=== PATIENT | male | born 1965 | race Caucasian/White ===

== ENCOUNTER 2019-10-31 23:47 | Observation (INO) ==
[2019-11-01 00:27] LABS: Basophils % 0.6 %; Eosinophils # 0.2 K/mcL (0.0-0.6); Eosinophils % 2.4 %; Hematocrit 44.1 % (37.5-50.1); Hemoglobin 15.5 g/dL (12.9-16.9); Immature Granulocytes % 0.1 % (0-4); Lymphocytes # 2.5 K/mcL (0.6-4.6); Mean Corpuscular HGB Conc 35.1 g/dL (31.6-35.5); Mean Corpuscular Hemoglobin 32.6 pg (28.0-33.3); Mean Corpuscular Volume 92.8 fL (83.0-100.0); Mean Platelet Volume 10.6 fL (9.4-12.4); Monocytes # 0.7 K/mcL (0.0-1.3); Monocytes % 9.9 %; Neutrophils # 3.7 K/mcL (1.6-8.9); Platelet Count 150 K/mcL (140-400); Red Blood Count 4.75 M/mcL (4.19-5.50); Red Cell Distribution Width 12.1 % (11.5-14.5); White Blood Count 7.2 K/mcL (4.3-11.1)
[2019-11-01 00:49] LABS: BUN/Creatinine Ratio 16 (6-26); Blood Urea Nitrogen 15 mg/dL (6-20); Carbon Dioxide 21 mEq/L (23-29); Chloride 108 mEq/L (98-107); Glucose 104 mg/dL (70-105); Osmolality,Calculated 285 (280-300); Potassium 4.1 mEq/L (3.5-5.1); Sodium 137 mEq/L (136-145); eGFR For African Americans > 60 (> 60); eGFR For Non-African Americans > 60 (> 60)
[2019-11-01 00:56] LABS: Troponin I 0.11 ng/mL (< 0.04)
[2019-11-01] MEDS ORDERED: *HR* Heparin 5,000 UNIT/ML VIAL IVP PRN ×2 (01:14)
[2019-11-01] MEDS ORDERED: *HR* Heparin 5,000 UNIT/ML VIAL IVP ONE (01:14)
[2019-11-01] MEDS ORDERED: Heparin 25,000 UNIT/250 ML D5W 25,000 UNIT/250 ML IV.SOLN IVC SCH (01:15)
[2019-11-01] MEDS ORDERED: Aspirin 81 MG TAB.CHEW PO STA (01:16)
[2019-11-01] MEDS: Nitroglycerin 0.4 MG TAB.SUBL SL SCH ×3 (01:37→01:53)
[2019-11-01] MEDS ORDERED: Ondansetron 4 MG/2 ML VIAL ONE (01:44)
[2019-11-01] MEDS ORDERED: *HR* FentaNYL (PF) 100 MCG/2 ML VIAL IVP ONE (01:48)
[2019-11-01] MEDS ORDERED: Ondansetron 4 MG/2 ML VIAL IVP ONE (01:50)
[2019-11-01 02:07] LABS: Heparin anti-factor XA UFH 0.01 IU/mL (0.30-0.70)
[2019-11-01] MEDS ORDERED: Morphine Sulfate 2 MG/ML SYRINGE IVP ONE (02:23)
[2019-11-01] MEDS ORDERED: Naloxone 0.4 MG/ML INJ IVP PRN (03:50)
[2019-11-01] MEDS ORDERED: Nicotine 2 MG GUM BC PRN (03:50)
[2019-11-01 04:21] LABS: Basophils % 0.3 %; Eosinophils # 0.1 K/mcL (0.0-0.6); Hematocrit 42.2 % (37.5-50.1); Hemoglobin 14.3 g/dL (12.9-16.9); Immature Granulocytes % 0.3 % (0-4); Lymphocytes # 1.7 K/mcL (0.6-4.6); Lymphocytes % 18.9 %; Mean Corpuscular HGB Conc 33.9 g/dL (31.6-35.5); Mean Corpuscular Hemoglobin 33.1 pg (28.0-33.3); Mean Corpuscular Volume 97.7 fL (83.0-100.0); Mean Platelet Volume 10.3 fL (9.4-12.4); Monocytes # 0.6 K/mcL (0.0-1.3); Monocytes % 7.2 %; Neutrophils # 6.4 K/mcL (1.6-8.9); Platelet Count 144 K/mcL (140-400); Red Blood Count 4.32 M/mcL (4.19-5.50); Red Cell Distribution Width 12.2 % (11.5-14.5); Segmented Neutrophils % 72.3 %; White Blood Count 8.9 K/mcL (4.3-11.1)
[2019-11-01 04:49] LABS: Alanine Aminotransferase 22 Units/L (7-52); Albumin 4.1 g/dL (3.5-5.7); Albumin/Globulin Ratio 1.3 (1.1-2.2); Alkaline Phosphatase 68 Units/L (34-104); Aspartate Amino Transferase 24 Units/L (13-39); BUN/Creatinine Ratio 16 (6-26); Bilirubin,Total 0.4 mg/dL (0.3-1.0); Blood Urea Nitrogen 16 mg/dL (6-20); Calcium 9.8 mg/dL (8.6-10.3); Carbon Dioxide 25 mEq/L (23-29); Chloride 106 mEq/L (98-107); Chol/HDL Ratio 5.8 (0-4.9); Cholesterol 192 mg/dL (< 200); Globulin 3.2 g/dL (2.4-3.5); Glucose 159 mg/dL (70-105); HDL Cholesterol 33 mg/dL (40-59); LDL Cholesterol,Calculated 143 mg/dL (0-99); Magnesium 1.8 mg/dL (1.6-2.6); Osmolality,Calculated 293 (280-300); Phosphorous 2.4 mg/dL (2.7-4.5); Potassium 4.4 mEq/L (3.5-5.1); Sodium 139 mEq/L (136-145); Total Protein 7.3 g/dL (6.4-8.9); Triglycerides 79 mg/dL (< 150); Troponin I 0.66 ng/mL (< 0.04); eGFR For African Americans > 60 (> 60); eGFR For Non-African Americans > 60 (> 60)
[2019-11-01 07:09] LABS: Bilirubin,Urine Negative (Negative); Blood,Urine Negative (Negative); Clarity,Urine Clear (Clear); Color,Urine Yellow (Yellow); Glucose,Urine (UA) Normal (Normal); Ketones,Urine Negative (Negative); Leukocyte Esterase,Urine Small (Negative); Nitrite,Urine Negative (Negative); PH,Urine 5.5 pH Units (5.0-8.0); Protein,Urine 30 mg/dL (Neg-Trace); Specific Gravity,Urine 1.023 (1.010-1.025); Urobilinogen,Urine Normal (Normal)
[2019-11-01 07:11] LABS: Bacteria,Urine None Seen per hpf (None-Few); Hyaline Casts,Urine None Seen per lpf (None-Few); Squamous Epithelial Cell,Urine Moderate per lpf (None-Few)
[2019-11-01 07:53] LABS: Amphetamine Screen,Urine Negative ng/mL (Cutoff=1000); Barbiturate Screen,Urine Negative ng/mL (Cutoff=200); Benzodiazepines Screen,Urine Negative ng/mL (Cutoff=200); Cannabinoid Screen,Urine Positive ng/mL (Cutoff = 50); Cocaine Screen,Urine Negative ng/mL (Cutoff= 300); Opiate Screen,Urine Positive ng/mL (Cutoff=300); Phencyclidine Screen,Urine Negative ng/mL (Cutoff=25)
[2019-11-01] MEDS ORDERED: carvediloL 6.25 MG TABLET PO SCH (08:00)
[2019-11-01] MEDS ORDERED: Nicotine 14 MG PATCH.TD24 TD SCH (09:00)
[2019-11-01 11:32] VITALS: BP 164/83
[2019-11-02] MEDS ORDERED: Aspirin Enteric Coated 81 MG Tablet PO SCH (09:00)
== END 2019-11-01 11:20 | disposition left against medical advice (07) ==
LOC: EMEROOARM 23:47 → CDU 23:47
PROVIDERS: ADMIT Family Medicine; ATTEND Family Medicine

== ENCOUNTER 2019-11-01 16:21 | Inpatient (IN) ==
[2019-11-01] MEDS ORDERED: *HR* Heparin 5,000 UNIT/ML VIAL IVP PRN ×2 (16:48)
[2019-11-01] MEDS ORDERED: *HR* Heparin 5,000 UNIT/ML VIAL IVP ONE (16:48)
[2019-11-01] MEDS ORDERED: Heparin 25,000 UNIT/250 ML D5W 25,000 UNIT/250 ML IV.SOLN IVC SCH (17:00)
[2019-11-01 17:52] LABS: Prothrombin Time 11.3 Seconds (9.4-12.1)
[2019-11-01 18:37] LABS: Hematocrit 41.1 % (37.5-50.1); Hemoglobin 14.7 g/dL (12.9-16.9); Mean Corpuscular HGB Conc 35.8 g/dL (31.6-35.5); Mean Corpuscular Hemoglobin 33.2 pg (28.0-33.3); Mean Corpuscular Volume 92.8 fL (83.0-100.0); Mean Platelet Volume 10.4 fL (9.4-12.4); Platelet Count 138 K/mcL (140-400); Red Blood Count 4.43 M/mcL (4.19-5.50); Red Cell Distribution Width 12.3 % (11.5-14.5); White Blood Count 8.1 K/mcL (4.3-11.1)
[2019-11-01] MEDS ORDERED: Perflutren Lipid Microsphere 1.3 ML in 0.9 % Sodium Chloride 8.7 ML IVP ONE (19:05)
[2019-11-01] MEDS ORDERED: Naloxone 0.4 MG/ML INJ IVP PRN (20:12)
[2019-11-01] MEDS ORDERED: Aspirin 325 MG TABLET PO ONE (20:12)
[2019-11-01] MEDS ORDERED: Nicotine 2 MG GUM BC PRN (20:16)
[2019-11-01] MEDS ORDERED: Nicotine 14 MG PATCH.TD24 TD SCH (20:40)
[2019-11-01] MEDS: carvediloL 6.25 MG TABLET PO SCH (22:16)
[2019-11-02 02:10] LABS: Basophils % 0.3 %; Eosinophils # 0.2 K/mcL (0.0-0.6); Eosinophils % 2.8 %; Hematocrit 42.3 % (37.5-50.1); Immature Granulocytes % 0.2 % (0-4); Lymphocytes # 2.5 K/mcL (0.6-4.6); Lymphocytes % 37.7 %; Mean Corpuscular HGB Conc 35.5 g/dL (31.6-35.5); Mean Corpuscular Hemoglobin 32.8 pg (28.0-33.3); Mean Corpuscular Volume 92.6 fL (83.0-100.0); Mean Platelet Volume 10.4 fL (9.4-12.4); Monocytes # 0.6 K/mcL (0.0-1.3); Monocytes % 8.6 %; Neutrophils # 3.3 K/mcL (1.6-8.9); Platelet Count 142 K/mcL (140-400); Red Blood Count 4.57 M/mcL (4.19-5.50); Red Cell Distribution Width 12.3 % (11.5-14.5); Segmented Neutrophils % 50.4 %; White Blood Count 6.5 K/mcL (4.3-11.1)
[2019-11-02 02:15] LABS: INR 1.1; Prothrombin Time 12.7 Seconds (9.4-12.1)
[2019-11-02 02:32] LABS: Alanine Aminotransferase 29 Units/L (7-52); Albumin/Globulin Ratio 1.3 (1.1-2.2); Alkaline Phosphatase 68 Units/L (34-104); Aspartate Amino Transferase 60 Units/L (13-39); BUN/Creatinine Ratio 16 (6-26); Bilirubin,Total 0.5 mg/dL (0.3-1.0); Blood Urea Nitrogen 15 mg/dL (6-20); Calcium 9.3 mg/dL (8.6-10.3); Carbon Dioxide 25 mEq/L (23-29); Chloride 108 mEq/L (98-107); Glucose 96 mg/dL (70-105); Magnesium 1.9 mg/dL (1.6-2.6); Osmolality,Calculated 285 (280-300); Phosphorous 3.7 mg/dL (2.7-4.5); Potassium 4.1 mEq/L (3.5-5.1); Sodium 137 mEq/L (136-145); eGFR For African Americans > 60 (> 60); eGFR For Non-African Americans > 60 (> 60)
[2019-11-02] MEDS: carvediloL 6.25 MG TABLET PO SCH ×2 (07:39→18:32)
[2019-11-02] MEDS: Aspirin Enteric Coated 81 MG Tablet PO SCH (09:04)
[2019-11-02] MEDS: Nicotine 14 MG PATCH.TD24 TD SCH (11:44)
[2019-11-02] MEDS ORDERED: *HR* Heparin 10,000 UNIT/10 ML VIAL ONE (13:16)
[2019-11-02] MEDS ORDERED: Heparin 1,000 UNITS/500 mL 500 ML ONE (13:16)
[2019-11-02] MEDS ORDERED: ISOVUE-370 200 ML INFUS..BTL ONE (13:16)
[2019-11-02] MEDS ORDERED: 0.9 % Sodium Chloride 2,000 ML ONE (13:17)
[2019-11-02] MEDS ORDERED: Nitroglycerin 1,000 MCG/10 ML VIAL IV ONE (13:17)
[2019-11-02] MEDS ORDERED: *HR* FentaNYL (PF) 100 MCG/2 ML VIAL ONE (14:13)
[2019-11-02] MEDS ORDERED: *HR* Midazolam HCl 2 MG/2 ML VIAL ONE (14:13)
[2019-11-02] MEDS ORDERED: *HR* Ticagrelor 90 MG TABLET ONE (14:43)
[2019-11-02] MEDS ORDERED: *HR* Bivalirudin 250 MG VIAL IVC ONE (14:52)
[2019-11-02] MEDS ORDERED: Nitroglycerin 0.4 MG TAB.SUBL SL PRN (15:05)
[2019-11-02] MEDS ORDERED: 0.9 % Sodium Chloride 1,000 ML IVC SCH (15:15)
[2019-11-02] MEDS: *HR* Heparin 5,000 UNIT/ML VIAL SQ SCH (22:55)
[2019-11-03] MEDS: *HR* Heparin 5,000 UNIT/ML VIAL SQ SCH (04:26)
[2019-11-03 06:14] LABS: Hematocrit 44.9 % (37.5-50.1); Hemoglobin 15.9 g/dL (12.9-16.9)
[2019-11-03 06:44] LABS: BUN/Creatinine Ratio 17 (6-26); Blood Urea Nitrogen 16 mg/dL (6-20); eGFR For African Americans > 60 (> 60); eGFR For Non-African Americans > 60 (> 60)
[2019-11-03 07:23] VITALS: BP 144/78
[2019-11-03] MEDS: Nicotine 14 MG PATCH.TD24 TD SCH (09:04)
[2019-11-03] MEDS: Aspirin Enteric Coated 81 MG Tablet PO SCH (09:05)
[2019-11-03] MEDS: carvediloL 6.25 MG TABLET PO SCH (09:05)
[2019-11-03] MEDS ORDERED: FLU Vac QV 19-20 (6Month+)/PF 0.5 ML SYRINGE IM ONE (09:52)
== END 2019-11-03 11:22 | disposition home or self-care (01) | DRG 249 ==
LOC: EMEROOARM 16:21 → 2ANU 16:21 → SUATTDRO 21:13 → 2ANU 21:41
PROVIDERS: ADMIT Internal Medicine; ATTEND Internal Medicine

== ENCOUNTER 2019-11-07 19:27 | Observation (INO) ==
[2019-11-07 20:02] LABS: Basophils % 0.6 %; Eosinophils # 0.3 K/mcL (0.0-0.6); Eosinophils % 4.1 %; Hematocrit 40.4 % (37.5-50.1); Hemoglobin 14.5 g/dL (12.9-16.9); Immature Granulocytes % 0.3 % (0-4); Lymphocytes # 2.2 K/mcL (0.6-4.6); Lymphocytes % 30.9 %; Mean Corpuscular HGB Conc 35.9 g/dL (31.6-35.5); Mean Corpuscular Hemoglobin 32.7 pg (28.0-33.3); Mean Platelet Volume 10.2 fL (9.4-12.4); Monocytes # 0.9 K/mcL (0.0-1.3); Monocytes % 12.4 %; Neutrophils # 3.6 K/mcL (1.6-8.9); Platelet Count 158 K/mcL (140-400); Red Blood Count 4.44 M/mcL (4.19-5.50); Red Cell Distribution Width 11.9 % (11.5-14.5); Segmented Neutrophils % 51.7 %
[2019-11-07] MEDS: Nitroglycerin 0.4 MG TAB.SUBL SL SCH ×3 (20:03→20:13)
[2019-11-07 20:04] LABS: INR 1.1; Prothrombin Time 12.6 Seconds (9.4-12.1)
[2019-11-07 20:07] LABS: Activated Partial Thrombo Time 34.1 Seconds (26.0-36.0)
[2019-11-07 20:21] LABS: BUN/Creatinine Ratio 19 (6-26); Blood Urea Nitrogen 17 mg/dL (6-20); Calcium 9.5 mg/dL (8.6-10.3); Carbon Dioxide 25 mEq/L (23-29); Chloride 103 mEq/L (98-107); Glucose 118 mg/dL (70-105); Osmolality,Calculated 289 (280-300); Potassium 3.8 mEq/L (3.5-5.1); Sodium 138 mEq/L (136-145); eGFR For African Americans > 60 (> 60); eGFR For Non-African Americans > 60 (> 60)
[2019-11-07 20:28] LABS: Troponin I 0.12 ng/mL (< 0.04)
[2019-11-07] MEDS ORDERED: 0.9 % Sodium Chloride 1,000 ML IV ONE (20:31)
[2019-11-07] MEDS ORDERED: *HR* Heparin 5,000 UNIT/ML VIAL IVP ONE (20:34)
[2019-11-07] MEDS ORDERED: *HR* Heparin 5,000 UNIT/ML VIAL IVP PRN ×2 (20:34)
[2019-11-07] MEDS ORDERED: Heparin 25,000 UNIT/250 ML D5W 25,000 UNIT/250 ML IV.SOLN IVC SCH (20:45)
[2019-11-07] MEDS ORDERED: Morphine Sulfate 2 MG/ML SYRINGE IVP PRN (22:20)
[2019-11-08 03:10] LABS: Basophils % 0.7 %; Eosinophils # 0.2 K/mcL (0.0-0.6); Eosinophils % 3.6 %; Hematocrit 37.9 % (37.5-50.1); Immature Granulocytes % 0.2 % (0-4); Lymphocytes # 2.4 K/mcL (0.6-4.6); Lymphocytes % 38.8 %; Mean Corpuscular HGB Conc 34.3 g/dL (31.6-35.5); Mean Corpuscular Hemoglobin 32.7 pg (28.0-33.3); Mean Corpuscular Volume 95.2 fL (83.0-100.0); Mean Platelet Volume 10.3 fL (9.4-12.4); Monocytes # 0.8 K/mcL (0.0-1.3); Monocytes % 12.3 %; Neutrophils # 2.7 K/mcL (1.6-8.9); Platelet Count 142 K/mcL (140-400); Red Blood Count 3.98 M/mcL (4.19-5.50); Red Cell Distribution Width 11.9 % (11.5-14.5); Segmented Neutrophils % 44.4 %; White Blood Count 6.1 K/mcL (4.3-11.1)
[2019-11-08 03:34] LABS: Alanine Aminotransferase 20 Units/L (7-52); Albumin 3.7 g/dL (3.5-5.7); Albumin/Globulin Ratio 1.2 (1.1-2.2); Alkaline Phosphatase 59 Units/L (34-104); Aspartate Amino Transferase 17 Units/L (13-39); BUN/Creatinine Ratio 18 (6-26); Bilirubin,Total 0.4 mg/dL (0.3-1.0); Blood Urea Nitrogen 16 mg/dL (6-20); Calcium 8.9 mg/dL (8.6-10.3); Carbon Dioxide 22 mEq/L (23-29); Chloride 108 mEq/L (98-107); Globulin 3.2 g/dL (2.4-3.5); Glucose 95 mg/dL (70-105); Osmolality,Calculated 287 (280-300); Potassium 3.8 mEq/L (3.5-5.1); Sodium 138 mEq/L (136-145); Total Protein 6.9 g/dL (6.4-8.9); eGFR For African Americans > 60 (> 60); eGFR For Non-African Americans > 60 (> 60)
[2019-11-08 03:47] LABS: Thyroid Stimulating Hormone 3.703 mcIU/mL (0.340-5.600)
[2019-11-08 04:07] LABS: Estimated Average Glucose 126 mg/dl
[2019-11-08] MEDS ORDERED: carvediloL 6.25 MG TABLET PO SCH (08:00)
[2019-11-08] MEDS ORDERED: Nicotine 14 MG PATCH.TD24 TD SCH (09:00)
[2019-11-08] MEDS ORDERED: Aspirin Enteric Coated 81 MG Tablet PO SCH (09:00)
[2019-11-08] MEDS ORDERED: Nicotine 21 MG PATCH.TD24 TD SCH (09:00)
[2019-11-08] MEDS ORDERED: Perflutren Lipid Microsphere 1.3 ML in 0.9 % Sodium Chloride 8.7 ML IVP ONE (09:14)
[2019-11-08 09:57] VITALS: BP 130/45
[2019-11-08] MEDS ORDERED: Isosorbide MONOnitrate (24 HR) 30 MG TAB.ER.24H PO SCH (10:30)
== END 2019-11-08 15:45 | disposition home or self-care (01) ==
LOC: CDU 19:27 → EMEROOARM 19:27 → SUATTDRO 21:33 → CDU 22:24
PROVIDERS: ADMIT Student in an Organized Health Care Education/Training Program; ATTEND Family Medicine

== ENCOUNTER 2019-12-24 22:52 | Observation (INO) ==
[2019-12-24 23:22] LABS: Basophils % 0.4 %; Eosinophils # 0.3 K/mcL (0.0-0.6); Eosinophils % 3.6 %; Hematocrit 40.5 % (37.5-50.1); Hemoglobin 13.9 g/dL (12.9-16.9); Immature Granulocytes % 0.3 % (0-4); Lymphocytes # 2.1 K/mcL (0.6-4.6); Lymphocytes % 28.4 %; Mean Corpuscular HGB Conc 34.3 g/dL (31.6-35.5); Mean Corpuscular Hemoglobin 32.5 pg (28.0-33.3); Mean Corpuscular Volume 94.6 fL (83.0-100.0); Mean Platelet Volume 10.2 fL (9.4-12.4); Monocytes # 0.8 K/mcL (0.0-1.3); Monocytes % 10.4 %; Neutrophils # 4.3 K/mcL (1.6-8.9); Platelet Count 156 K/mcL (140-400); Red Blood Count 4.28 M/mcL (4.19-5.50); Red Cell Distribution Width 12.6 % (11.5-14.5); Segmented Neutrophils % 56.9 %; White Blood Count 7.5 K/mcL (4.3-11.1)
[2019-12-24 23:30] LABS: Prothrombin Time 11.7 Seconds (9.4-12.1)
[2019-12-24 23:33] LABS: Activated Partial Thrombo Time 28.3 Seconds (26.0-36.0)
[2019-12-24 23:38] LABS: BUN/Creatinine Ratio 22 (6-26); Blood Urea Nitrogen 20 mg/dL (6-20); Calcium 9.3 mg/dL (8.6-10.3); Carbon Dioxide 24 mEq/L (23-29); Chloride 102 mEq/L (98-107); Glucose 136 mg/dL (70-105); Osmolality,Calculated 287 (280-300); Potassium 3.8 mEq/L (3.5-5.1); Sodium 136 mEq/L (136-145); eGFR For African Americans > 60 (> 60); eGFR For Non-African Americans > 60 (> 60)
[2019-12-24 23:54] LABS: Troponin I < 0.03 ng/mL (< 0.04)
[2019-12-25] MEDS ORDERED: Ondansetron 4 MG/2 ML VIAL IVP ONE (00:09)
[2019-12-25] MEDS ORDERED: *HR* HYDROmorphone (PF) 1 MG/ML SYRINGE IVP ONE (00:09)
[2019-12-25] MEDS ORDERED: Ondansetron 4 MG/2 ML VIAL IVP PRN (00:12)
[2019-12-25] MEDS ORDERED: Naloxone 0.4 MG/ML INJ IVP PRN (00:12)
[2019-12-25] MEDS ORDERED: *HR* FentaNYL (PF) 100 MCG/2 ML VIAL IVP PRN (00:14)
[2019-12-25] MEDS ORDERED: Ringers Solution, Lactated 1,000 ML IVC ONE (00:14)
[2019-12-25] MEDS: Ringers Solution, Lactated 1,000 ML IVC SCH ×2 (03:00→10:38)
[2019-12-25] MEDS ORDERED: *HR* Heparin 5,000 UNIT/ML VIAL SQ SCH (06:00)
[2019-12-25] MEDS ORDERED: carvediloL 6.25 MG TABLET PO SCH (08:00)
[2019-12-25 08:34] LABS: Alanine Aminotransferase 14 Units/L (7-52); Albumin 3.1 g/dL (3.5-5.7); Albumin/Globulin Ratio 1.1 (1.1-2.2); Alkaline Phosphatase 64 Units/L (34-104); Aspartate Amino Transferase 12 Units/L (13-39); BUN/Creatinine Ratio 19 (6-26); Bilirubin,Indirect 0.2 mg/dL (0.0-1.0); Bilirubin,Total 0.2 mg/dL (0.3-1.0); Blood Urea Nitrogen 13 mg/dL (6-20); Calcium 8.4 mg/dL (8.6-10.3); Carbon Dioxide 22 mEq/L (23-29); Chloride 107 mEq/L (98-107); Globulin 2.8 g/dL (2.4-3.5); Glucose 95 mg/dL (70-105); Osmolality,Calculated 282 (280-300); Potassium 4.1 mEq/L (3.5-5.1); Sodium 136 mEq/L (136-145); Total Protein 5.9 g/dL (6.4-8.9); eGFR For African Americans > 60 (> 60); eGFR For Non-African Americans > 60 (> 60)
[2019-12-25] MEDS ORDERED: Aspirin Enteric Coated 81 MG Tablet PO SCH (09:00)
[2019-12-25] MEDS ORDERED: Isosorbide MONOnitrate (24 HR) 30 MG TAB.ER.24H PO SCH (09:00)
[2019-12-25 15:20] VITALS: BP 154/84
== END 2019-12-25 16:38 | disposition home or self-care (01) ==
LOC: 3ANU 22:52 → EMEROOARM 22:52 → SUATTDRO 12-25 00:12 → 3ANU 12-25 00:34
PROVIDERS: ADMIT Internal Medicine; ATTEND Internal Medicine

== ENCOUNTER 2019-12-25 20:57 | Inpatient (IN) ==
[2019-12-25] MEDS ORDERED: 0.9 % Sodium Chloride 500 ML IVC ONE (21:01)
[2019-12-25] MEDS ORDERED: *HR* HYDROmorphone (PF) 1 MG/ML SYRINGE IVP ONE (21:09)
[2019-12-25] MEDS ORDERED: Ondansetron 4 MG/2 ML VIAL IVP ONE (21:09)
[2019-12-25 21:26] LABS: Basophils % 0.3 %; Eosinophils # 0.1 K/mcL (0.0-0.6); Eosinophils % 1.7 %; Hematocrit 39.8 % (37.5-50.1); Hemoglobin 13.5 g/dL (12.9-16.9); Immature Granulocytes % 0.1 % (0-4); Lymphocytes # 1.6 K/mcL (0.6-4.6); Lymphocytes % 21.4 %; Mean Corpuscular HGB Conc 33.9 g/dL (31.6-35.5); Mean Corpuscular Hemoglobin 32.2 pg (28.0-33.3); Mean Platelet Volume 10.1 fL (9.4-12.4); Monocytes # 0.7 K/mcL (0.0-1.3); Monocytes % 9.1 %; Platelet Count 145 K/mcL (140-400); Red Blood Count 4.19 M/mcL (4.19-5.50); Red Cell Distribution Width 12.6 % (11.5-14.5); Segmented Neutrophils % 67.4 %; White Blood Count 7.4 K/mcL (4.3-11.1)
[2019-12-25 21:50] LABS: Alanine Aminotransferase 16 Units/L (7-52); Albumin 3.9 g/dL (3.5-5.7); Albumin/Globulin Ratio 1.1 (1.1-2.2); Alkaline Phosphatase 79 Units/L (34-104); Aspartate Amino Transferase 15 Units/L (13-39); BUN/Creatinine Ratio 14 (6-26); Bilirubin,Total 0.5 mg/dL (0.3-1.0); Blood Urea Nitrogen 12 mg/dL (6-20); Calcium 9.4 mg/dL (8.6-10.3); Carbon Dioxide 23 mEq/L (23-29); Chloride 104 mEq/L (98-107); Globulin 3.6 g/dL (2.4-3.5); Glucose 90 mg/dL (70-105); Lipase 141 Units/L (11-82); Osmolality,Calculated 283 (280-300); Potassium 3.9 mEq/L (3.5-5.1); Sodium 137 mEq/L (136-145); Total Protein 7.5 g/dL (6.4-8.9); eGFR For African Americans > 60 (> 60); eGFR For Non-African Americans > 60 (> 60)
[2019-12-25 21:51] LABS: Troponin I 0.03 ng/mL (< 0.04)
[2019-12-25] MEDS ORDERED: Ondansetron 4 MG/2 ML VIAL IVP PRN (22:48)
[2019-12-25] MEDS ORDERED: Naloxone 0.4 MG/ML INJ IVP PRN (22:48)
[2019-12-25] MEDS ORDERED: Nitroglycerin 0.4 MG TAB.SUBL SL PRN (22:51)
[2019-12-26] MEDS: Ringers Solution, Lactated 1,000 ML IVC SCH ×3 (00:34→13:10)
[2019-12-26 04:29] LABS: INR 1.1; Prothrombin Time 12.9 Seconds (9.4-12.1)
[2019-12-26 04:33] LABS: Basophils % 0.4 %; Eosinophils # 0.1 K/mcL (0.0-0.6); Hematocrit 38.5 % (37.5-50.1); Hemoglobin 12.7 g/dL (12.9-16.9); Immature Granulocytes % 0.4 % (0-4); Mean Corpuscular Hemoglobin 31.8 pg (28.0-33.3); Mean Corpuscular Volume 96.3 fL (83.0-100.0); Mean Platelet Volume 10.3 fL (9.4-12.4); Monocytes # 0.6 K/mcL (0.0-1.3); Monocytes % 10.5 %; Neutrophils # 2.7 K/mcL (1.6-8.9); Platelet Count 129 K/mcL (140-400); Red Cell Distribution Width 12.5 % (11.5-14.5); Segmented Neutrophils % 49.7 %; White Blood Count 5.5 K/mcL (4.3-11.1)
[2019-12-26 04:34] LABS: BUN/Creatinine Ratio 14 (6-26); Blood Urea Nitrogen 12 mg/dL (6-20); Carbon Dioxide 25 mEq/L (23-29); Chloride 104 mEq/L (98-107); Chol/HDL Ratio 4.4 (0-4.9); Cholesterol 114 mg/dL (< 200); Glucose 80 mg/dL (70-105); HDL Cholesterol 26 mg/dL (40-59); LDL Cholesterol,Calculated 69 mg/dL (0-99); Magnesium 1.6 mg/dL (1.6-2.6); Osmolality,Calculated 283 (280-300); Potassium 3.9 mEq/L (3.5-5.1); Sodium 137 mEq/L (136-145); Triglycerides 96 mg/dL (< 150); eGFR For African Americans > 60 (> 60); eGFR For Non-African Americans > 60 (> 60)
[2019-12-26] MEDS: *HR* Heparin 5,000 UNIT/ML VIAL SQ SCH ×3 (05:31→20:42)
[2019-12-26 07:03] LABS: Lipase 149 Units/L (11-82)
[2019-12-26] MEDS: Aspirin Enteric Coated 81 MG Tablet PO SCH (08:47)
[2019-12-26] MEDS: carvediloL 6.25 MG TABLET PO SCH ×2 (08:47→17:22)
[2019-12-26] MEDS: Isosorbide MONOnitrate (24 HR) 30 MG TAB.ER.24H PO SCH (08:48)
[2019-12-26 13:24] LABS: Bilirubin,Urine Negative (Negative); Blood,Urine Negative (Negative); Clarity,Urine Clear (Clear); Color,Urine Yellow (Yellow); Glucose,Urine (UA) Normal (Normal); Ketones,Urine 40 mg/dL (Negative); Leukocyte Esterase,Urine Negative (Negative); Nitrite,Urine Negative (Negative); Protein,Urine Negative (Neg-Trace); Specific Gravity,Urine 1.017 (1.010-1.025); Urobilinogen,Urine Normal (Normal)
[2019-12-27] MEDS: *HR* Heparin 5,000 UNIT/ML VIAL SQ SCH ×3 (05:17→22:38)
[2019-12-27 05:26] LABS: Hematocrit 37.4 % (37.5-50.1); Hemoglobin 12.5 g/dL (12.9-16.9); Mean Corpuscular HGB Conc 33.4 g/dL (31.6-35.5); Mean Corpuscular Volume 95.7 fL (83.0-100.0); Mean Platelet Volume 10.3 fL (9.4-12.4); Platelet Count 138 K/mcL (140-400); Red Blood Count 3.91 M/mcL (4.19-5.50); Red Cell Distribution Width 12.3 % (11.5-14.5); White Blood Count 4.9 K/mcL (4.3-11.1)
[2019-12-27 06:17] LABS: BUN/Creatinine Ratio 14 (6-26); Blood Urea Nitrogen 12 mg/dL (6-20); Calcium 9.1 mg/dL (8.6-10.3); Carbon Dioxide 27 mEq/L (23-29); Chloride 106 mEq/L (98-107); Glucose 91 mg/dL (70-105); Osmolality,Calculated 287 (280-300); Potassium 4.1 mEq/L (3.5-5.1); Sodium 139 mEq/L (136-145); eGFR For African Americans > 60 (> 60); eGFR For Non-African Americans > 60 (> 60)
[2019-12-27] MEDS: Aspirin Enteric Coated 81 MG Tablet PO SCH (08:54)
[2019-12-27] MEDS: carvediloL 6.25 MG TABLET PO SCH ×2 (09:05→17:50)
[2019-12-27] MEDS: Isosorbide MONOnitrate (24 HR) 30 MG TAB.ER.24H PO SCH (09:05)
[2019-12-27] MEDS: 0.9 % Sodium Chloride 1,000 ML IVC SCH ×3 (09:05→22:39)
[2019-12-27] MEDS ORDERED: Ondansetron 4 MG/2 ML VIAL ONE (18:44)
[2019-12-27] MEDS ORDERED: *HR* Rocuronium Bromide 50 MG/5 ML VIAL ONE (18:44)
[2019-12-27] MEDS ORDERED: Lidocaine HCL 4 ML Topical Solution (Laryng-O-Jet Kit Sterile Pak) TP ONE (18:44)
[2019-12-27] MEDS ORDERED: Dexamethasone 4 MG/ML VIAL ONE (18:44)
[2019-12-27] MEDS ORDERED: *HR* Succinylcholine 200 MG/10 ML VIAL IVP ONE (18:44)
[2019-12-27] MEDS ORDERED: Lidocaine -MPF 2% 2 ML VIAL ONE (18:44)
[2019-12-27] MEDS ORDERED: *HR* Midazolam HCl 2 MG/2 ML VIAL ONE (18:46)
[2019-12-27] MEDS ORDERED: *HR* FentaNYL (PF) 100 MCG/2 ML VIAL ONE ×2 (18:46→19:52)
[2019-12-27] MEDS ORDERED: Bupivacaine/EPI 1:200k 0.5%PF 30 ML VIAL ONE (18:51)
[2019-12-27] MEDS ORDERED: Esmolol 100 MG/10 ML VIAL IVP ONE (19:59)
[2019-12-27] MEDS ORDERED: Neostigmine Methylsulfate 3 MG/3 ML SYRINGE ONE (20:30)
[2019-12-27] MEDS ORDERED: *HR* Labetalol 20 MG/4 ML SYRINGE IVP PRN ×2 (21:05→21:45)
[2019-12-27] MEDS ORDERED: *HR* Promethazine 25 MG/ML VIAL IVP PRN (21:05)
[2019-12-27] MEDS ORDERED: Ondansetron 4 MG/2 ML VIAL IVP PRN ×2 (21:05→21:45)
[2019-12-27] MEDS ORDERED: *HR* HYDROmorphone (PF) 1 MG/ML SYRINGE ONE (21:11)
[2019-12-27] MEDS: *HR* HYDROmorphone (PF) 1 MG/ML SYRINGE IVP PRN ×3 (21:13→21:32)
[2019-12-27] MEDS ORDERED: Naloxone 0.4 MG/ML INJ IVP PRN (21:45)
[2019-12-27] MEDS ORDERED: Nitroglycerin 0.4 MG TAB.SUBL SL PRN (21:45)
[2019-12-28] MEDS: *HR* Heparin 5,000 UNIT/ML VIAL SQ SCH (05:12)
[2019-12-28 06:53] VITALS: BP 164/86
[2019-12-28] MEDS: 0.9 % Sodium Chloride 1,000 ML IVC SCH (06:53)
[2019-12-28 07:19] LABS: Hematocrit 43.3 % (37.5-50.1); Mean Corpuscular Hemoglobin 31.9 pg (28.0-33.3); Mean Corpuscular Volume 96.7 fL (83.0-100.0); Mean Platelet Volume 10.4 fL (9.4-12.4); Platelet Count 166 K/mcL (140-400); Red Blood Count 4.48 M/mcL (4.19-5.50); Red Cell Distribution Width 12.3 % (11.5-14.5)
[2019-12-28 07:31] LABS: Hemoglobin 14.3 g/dL (12.9-16.9); White Blood Count 7.6 K/mcL (4.3-11.1)
[2019-12-28 07:32] LABS: BUN/Creatinine Ratio 18 (6-26); Blood Urea Nitrogen 17 mg/dL (6-20); Calcium 8.9 mg/dL (8.6-10.3); Carbon Dioxide 20 mEq/L (23-29); Chloride 105 mEq/L (98-107); Glucose 166 mg/dL (70-105); Osmolality,Calculated 287 (280-300); Potassium 4.4 mEq/L (3.5-5.1); Sodium 136 mEq/L (136-145); eGFR For African Americans > 60 (> 60); eGFR For Non-African Americans > 60 (> 60)
[2019-12-28] MEDS ORDERED: carvediloL 6.25 MG TABLET PO SCH (08:00)
[2019-12-28] MEDS ORDERED: Ketorolac 30 MG/ML VIAL IVP STA (08:33)
[2019-12-28] MEDS ORDERED: Simethicone 80 MG TAB.CHEW PO PRN (08:34)
[2019-12-28] MEDS ORDERED: *HR* HYDROcodone/Acet 5/325 mg TABLET PO PRN (08:52)
[2019-12-28] MEDS ORDERED: Isosorbide MONOnitrate (24 HR) 30 MG TAB.ER.24H PO SCH (09:00)
[2019-12-28] MEDS ORDERED: Acetaminophen IV 1,000 MG/100 ML INFUS..BTL IVPB ONE (12:00)
== END 2019-12-28 11:09 | disposition home or self-care (01) | DRG 419 ==
LOC: EMEROOARM 20:57 → 3ANU 20:57 → SUATTDRO 12-27 15:28
PROVIDERS: ADMIT Family Medicine; ATTEND Internal Medicine

== ENCOUNTER 2022-04-25 13:08 | Observation (INO) ==
[2022-04-25 13:41] LABS: Basophils # 0.1 K/mcL (0.0-0.2); Basophils % 0.9 %; Eosinophils # 0.1 K/mcL (0.0-0.6); Eosinophils % 1.8 %; Hematocrit 39.9 % (37.5-50.1); Immature Granulocytes % 0.1 % (0-4); Lymphocytes # 2.2 K/mcL (0.6-4.6); Lymphocytes % 31.6 %; Mean Corpuscular HGB Conc 35.1 g/dL (31.6-35.5); Mean Corpuscular Hemoglobin 33.7 pg (28.0-33.3); Mean Corpuscular Volume 96.1 fL (83.0-100.0); Mean Platelet Volume 10.6 fL (9.4-12.4); Monocytes # 0.8 K/mcL (0.0-1.3); Monocytes % 11.1 %; Neutrophils # 3.8 K/mcL (1.6-8.9); Nucleated Red Blood Cells 0.3 /100 WBC (0); Platelet Count 167 K/mcL (140-400); Red Blood Count 4.15 M/mcL (4.19-5.50); Red Cell Distribution Width 11.8 % (11.5-14.5); Segmented Neutrophils % 54.5 %
[2022-04-25 14:19] LABS: Alanine Aminotransferase 24 Units/L (7-52); Albumin 4.6 g/dL (3.5-5.7); Albumin/Globulin Ratio 1.3 (1.1-2.2); Alkaline Phosphatase 68 Units/L (34-104); Aspartate Amino Transferase 22 Units/L (13-39); BUN/Creatinine Ratio 17 (6-26); Bilirubin,Total 0.5 mg/dL (0.3-1.0); Blood Urea Nitrogen 54 mg/dL (6-20); Calcium 9.5 mg/dL (8.6-10.3); Carbon Dioxide 17 mEq/L (23-29); Chloride 105 mEq/L (98-107); Globulin 3.5 g/dL (2.4-3.5); Glucose 151 mg/dL (70-105); Osmolality,Calculated 298 (280-300); Potassium 5.5 mEq/L (3.5-5.1); Sodium 135 mEq/L (136-145); Total Protein 8.1 g/dL (6.4-8.9); Troponin I < 0.03 ng/mL (< 0.04); eGFR For African Americans 24 (> 60); eGFR For Non-African Americans 20 (> 60)
[2022-04-25] MEDS ORDERED: 0.9 % Sodium Chloride 1,000 ML IV ONE ×2 (15:49→16:47)
[2022-04-25 16:08] LABS: Creatine Kinase 89 Units/L (30-223)
[2022-04-25] MEDS ORDERED: Calcium Gluconate 1,000 MG/10 ML VIAL IVP STA (16:16)
[2022-04-25] MEDS ORDERED: Acetaminophen 325 MG TABLET PO PRN (16:52)
[2022-04-25] MEDS ORDERED: Ondansetron 4 MG/2 ML VIAL IVP PRN (16:52)
[2022-04-25] MEDS ORDERED: Naloxone 0.4 MG/ML INJ IVP PRN (16:52)
[2022-04-25] MEDS ORDERED: SODIUM ZIRCONIUM CYCLOSILICATE 5 GM POWD.PACK PO SCH (17:00)
[2022-04-25] MEDS ORDERED: 0.9 % Sodium Chloride 1,000 ML IVC SCH (17:00)
[2022-04-25 17:35] LABS: Bilirubin,Urine Negative (Negative); Blood,Urine Negative (Negative); Clarity,Urine Clear (Clear); Color,Urine Yellow (Yellow); Glucose,Urine (UA) Normal (Normal); Hyaline Casts,Urine Many per lpf (None Seen); Ketones,Urine Trace mg/dL (Negative); Leukocyte Esterase,Urine Negative (Negative); Mucus,Urine Few per lpf (None-Few); Nitrite,Urine Negative (Negative); PH,Urine 5.5 pH Units (5.0-8.0); Protein,Urine 30 mg/dL (Neg-Trace); RBC,Urine 0-3 per hpf (0-3); Specific Gravity,Urine 1.029 (1.010-1.025); Squamous Epithelial Cell,Urine Few per hpf (None-Few); WBC,Urine 0-3 per hpf (0-3)
[2022-04-25] MEDS: *HR* Heparin 5,000 UNIT/ML VIAL SQ SCH (20:05)
[2022-04-26] MEDS: *HR* Heparin 5,000 UNIT/ML VIAL SQ SCH (04:52)
[2022-04-26 06:13] LABS: Basophils % 0.5 %; Eosinophils # 0.1 K/mcL (0.0-0.6); Eosinophils % 3.5 %; Hematocrit 36.5 % (37.5-50.1); Immature Granulocytes % 0.2 % (0-4); Lymphocytes # 1.6 K/mcL (0.6-4.6); Lymphocytes % 38.7 %; Mean Corpuscular HGB Conc 33.7 g/dL (31.6-35.5); Mean Corpuscular Hemoglobin 33.3 pg (28.0-33.3); Mean Corpuscular Volume 98.9 fL (83.0-100.0); Mean Platelet Volume 10.7 fL (9.4-12.4); Monocytes # 0.6 K/mcL (0.0-1.3); Monocytes % 13.7 %; Neutrophils # 1.7 K/mcL (1.6-8.9); Platelet Count 111 K/mcL (140-400); Red Blood Count 3.69 M/mcL (4.19-5.50); Red Cell Distribution Width 11.8 % (11.5-14.5); Segmented Neutrophils % 43.4 %
[2022-04-26 06:23] LABS: Hemoglobin 12.3 g/dL (12.9-16.9)
[2022-04-26 06:32] LABS: Calcium 8.9 mg/dL (8.6-10.3); Magnesium 2.2 mg/dL (1.6-2.6); Phosphorous 4.1 mg/dL (2.7-4.5); Potassium 4.6 mEq/L (3.5-5.1)
[2022-04-26] MEDS ORDERED: carvediloL 6.25 MG TABLET PO SCH (08:00)
[2022-04-26 08:52] VITALS: BP 133/69; PULSE 63; TEMP 97.4; O2SAT 99
[2022-04-26] MEDS ORDERED: Isosorbide MONOnitrate (24 HR) 60 MG TAB.ER.24H PO SCH (09:00)
[2022-04-26] MEDS ORDERED: Aspirin Enteric Coated 81 MG Tablet PO SCH (09:00)
== END 2022-04-26 11:23 | disposition home or self-care (01) ==
LOC: EMEROOARM 13:08 → 2ANU 13:08 → SUATTDRO 17:16 → 2ANU 18:25
PROVIDERS: ADMIT Internal Medicine; ATTEND Internal Medicine